=== PATIENT | male | born 1965 | race Hispanic/Latino ===

== ENCOUNTER 2019-05-04 10:02 | Inpatient (IN) | payer OTHER ==
[2019-05-04] MEDS ORDERED: LIDOCAINE VISCOUS 2% SOLN 15 ML UDC ONE (10:49)
[2019-05-04] MEDS ORDERED: NACL 0.9% IRR SOLN 2,000 ML IRR ONE ×3 (10:51→15:29)
[2019-05-04 11:35] LABS: Urine Culture Reflex Order NOT NEEDED; Urine RBC TNTC /HPF (NONE SEEN)
[2019-05-04 11:36] LABS: Urine Bacteria <20 /HPF (NONE SEEN)
[2019-05-04 11:51] LABS: Protime INR 1.01
[2019-05-04 12:02] LABS: Absolute Lymphocytes (CBC) 1.4 K/uL (0.7-4.9); Basophils % 0.5 % (0-1.3); Hematocrit 46.1 % (39.6-49.0); Lymphocytes % 18.4 % (15.3-44.8); MPV 10.5 fL (7.6-11.3); RBC Red Blood Cell Count 4.96 M/uL (4.33-5.43)
[2019-05-04 12:03] LABS: ALT/SGPT 52 U/L (12-78); AST/SGOT 28 U/L (15-37); Albumin 3.9 g/dL (3.4-5.0); Alkaline Phosphatase 78 U/L (45-117); BUN Blood Urea Nitrogen 8 mg/dL (7-18); Bicarbonate 27 mmol/L (21-32); Bilirubin Direct 0.2 mg/dL (0-0.2); Bilirubin Total 0.6 mg/dL (0.2-1.0); Glucose Level 104 mg/dL (74-106); Lipase 99 U/L (73-393); Potassium 3.5 mmol/L (3.5-5.1); Protein, Total 7.8 g/dL (6.4-8.2); Sodium Level 139 mmol/L (136-145)
--- NOTE | 2019-05-04 12:51 | RAD REPORT ---
EXAM DESCRIPTION: US - Renal Ultrasound-Complete - 05/04/2019 12:12 pm CLINICAL HISTORY: . Hematuria COMPARISON: None. FINDINGS: The right kidney measures 11 cm with a normal echotexture. The left kidney measures 11 cm with a normal echotexture. Hydronephrosis is not seen. A Goldberg catheter is present within a decompressed bladder limiting evaluation. Echos within the bladd er may indicate blood IMPRESSION: Unremarkable renal ultrasound. A Goldberg catheter is present within a decompressed bladder limiting evaluation. Echos within the bladd er may indicate blood
[2019-05-04] MEDS ORDERED: CEFTRIAXONE/SWI 1gm 1 GM/10 ML SYR ONE (13:11)
--- NOTE | 2019-05-04 14:08 | EDPHYS ---
Physician Documentation [facility] Name: Main Sotne Age: 53 yrs Sex: Male : 1965 Arrival Date: 05/04/2019 Time: 10:04 Bed 20 Private MD: Todd Anderson, A ED Physician Rene Yanez HPI: 05/04 11:00 This 53 yrs old Male presents to ER via Ambulatory with complaints of Urinary cp Retention. 11:00 The patient presents with urinary symptoms, unable to void, hematuria. Onset: The cp symptoms/episode began/occurred yesterday. Associated signs and symptoms: Pertinent positives: abdominal pain, hematuria, Pertinent negatives: constipation, diarrhea, dysuria, fever, vomiting. Severity of symptoms: in the emergency department the symptoms are unchanged, despite home interventions. 11:00 Patient reports having TURP procedure by DR Anderson about 4 weeks ago. cp Historical: - Allergies: 10:25 No Known Allergies; ss - PMHx: 10:25 None; ss - PSHx: 10:25 prostate lift; vein surgery in leg; ss - Immunization history:: Adult Immunizations up to date. - Social history:: Smoking status: Patient/guardian denies using tobacco. - Ebola Screening: : Patient denies exposure to infectious person Patient denies travel to an Ebola-affected area in the 21 days before illness onset. ROS: 11:05 Constitutional: Negative for body aches, chills, fever, poor PO intake. cp 11:05 Eyes: Negative for injury, pain, redness, and discharge. cp 11:05 ENT: Negative for drainage from ear(s), ear pain, sore throat, difficulty swallowing, difficulty handling secretions. 11:05 Cardiovascular: Negative for chest pain, edema, palpitations. 11:05 Respiratory: Negative for cough, shortness of breath, wheezing. 11:05 Abdomen/GI: Positive for abdominal pain, Negative for vomiting, diarrhea, constipation, anorexia, black/tarry stool, rectal bleeding. 11:05 Back: Negative for pain at rest, pain with movement. 11:05 : Positive for hematuria, difficulty urinating, Negative for flank pain, bladder incontinence, testicular pain 11:05 Skin: Negative for rash. 11:05 Neuro: Negative for altered mental status, headache, weakness. 11:05 All other systems are negative. Exam: 11:15 Constitutional: The patient appears in no acute distress, alert, awake, cp non-diaphoretic, non-toxic, well developed, well nourished, uncomfortable. 11:15 Head/Face: Normocephalic, atraumatic. cp 11:15 Eyes: Periorbital structures: appear normal, Conjunctiva: normal, no exudate, no injection, Sclera: no appreciated abnormality, Lids and lashes: appear normal, bilaterally. 11:15 ENT: External ear(s): are unremarkable, Nose: is normal, Mouth: is normal, Posterior pharynx: is normal, airway is patent, no erythema, no exudate. 11:15 Chest/axilla: Inspection: normal, Palpation: is normal, no crepitus, no tenderness. 11:15 Cardiovascular: Rate: normal, Rhythm: regular, Edema: is not appreciated, JVD: is not appreciated. 11:15 Respiratory: the patient does not display signs of respiratory distress, Respirations: normal, no use of accessory muscles, no retractions, labored breathing, is not present, Breath sounds: are clear throughout, no decreased breath sounds, no stridor, no wheezing. 11:15 Abdomen/GI: Inspection: distension, that is mild, in the suprapubic area, Bowel sounds: active, all quadrants, Palpation: soft, in all quadrants, moderate abdominal tenderness, in the suprapubic area, rebound tenderness, is not appreciated, voluntary guarding, is elicited in the suprapubic area, involuntary guarding, is not appreciated. 11:15 Back: CVA tenderness, is absent. 11:15 Skin: no rash present. 11:15 Neuro: Orientation: to person, place \T\ time. Mentation: is normal, Motor: moves all fours, strength is normal. Vital Signs: 10:22 BP 124 / 94; Pulse 82; Resp 16; Temp 99.1(TE); Pulse Ox 97% on R/A; Weight 81.65 kg; ss Height 5 ft. 5 in. (165.10 cm); Pain 7/10; 11:44 BP 119 / 93; Pulse 78; Resp 16; Temp 99.4(O); Pulse Ox 98% on R/A; mh5 13:07 BP 127 / 90; Pulse 69; Resp 18; Pulse Ox 99% on R/A; Pain 0/10; em 13:59 BP 121 / 87; Pulse 67; Resp 18; Temp 98.2(O); Pulse Ox 97% on R/A; mh5 14:48 BP 120 / 91; Pulse 70; Resp 17; Temp 98.8(O); Pulse Ox 99% on R/A; mh5 10:22 Body Mass Index 29.95 (81.65 kg, 165.10 cm) ss MDM: 10:27 Patient medically screened. cp 12:00 Differential diagnosis: UTI, urinary retention, prostatitis, urethritis, cystitis. cp 13:20 Data reviewed: vital signs, nurses notes, lab test result(s), radiologic studies, cp ultrasound. 13:20 Counseling: I had a detailed discussion with the patient and/or guardian regarding: the cp historical points, exam findings, and any diagnostic results supporting the discharge/admit diagnosis, lab results, radiology results. Response to treatment: the patient's symptoms have mildly improved after treatment. 13:25 Physician consultation: Todd Anderson MD was called at 13:25, left message on voicemail. 14:20 Physician consultation: Todd Anderson MD was contacted at 14:00, regarding consult, cp patient's condition, would like admission per Dr. Viviana To MD. 05/04 11:11 Order name: Basic Metabolic Panel; Complete Time: 12:12 cp 05/04 11:11 Order name: CBC with Diff; Complete Time: 12:26 cp 05/04 12:57 Interpretation: Normal except: CAROLINE% 74.2. cp 05/04 11:11 Order name: Creatinine for Radiology; Complete Time: 12:12 cp 05/04 11:11 Order name: Hepatic Function; Complete Time: 12:12 cp 05/04 11:11 Order name: Lipase; Complete Time: 12:12 cp 05/04 11:11 Order name: PT-INR; Complete Time: 12:12 cp 05/04 10:54 Order name: Bladder Scanner: pre and post void; Complete Time: 10:54 cp 05/04 11:11 Order name: IV Saline Lock; Complete Time: 11:49 cp 05/04 11:11 Order name: Labs collected and sent; Complete Time: 11:49 cp 05/04 11:11 Order name: Ptt, Activated; Complete Time: 12:12 cp 05/04 11:11 Order name: US Rp Exam Complete; Complete Time: 12:56 cp 05/04 11:11 Order name: UA MICROSCOPIC; Complete Time: 12:12 cp 05/04 12:12 Interpretation: Reviewed. cp 05/04 11:11 Order name: Urine Culture cp 05/04 11:11 Order name: Bladder Irrigation: until clear; Complete Time: 11:49 cp Administered Medications: 13:16 Drug: Rocephin 1 grams Route: IV; Rate: bolus; Site: right antecubital; ss 14:09 Follow up: Response: No adverse reaction; IV Status: Completed infusion; IV Intake: 10mlem Disposition: 05/04/19 14:07 Hospitalization ordered by Viviana To for Observation. Preliminary diagnosis are Hematuria, Retention of urine. - Bed requested for Telemetry/MedSurg (observation). - Status is Observation. em - Condition is Stable. - Problem is new. - Symptoms have improved. UTI on Admission? No Addendum: 05/08/2019 06:04 Co-signature as Attending Physician, Rene Yanez MD. g s Signatures: Dispatcher [employer] EDMS Sasha Marcelo bd Lamberto, Candelario, BROACH TROUBLE SHOOTER BROACH TROUBLE SHOOTER em Kaylyn Neri RN RN ss Nato Alejandre PA PA cp Rene Yanez MD MD Corrections: (The following items were deleted from the chart) 05/04 15:35 14:07 Hospitalization Ordered by Viviana To MD for Observation. Preliminary diagnosis bd is Hematuria; Retention of urine. Bed requested for Telemetry/MedSurg (observation). Status is Observation. Condition is Stable. Problem is new. Symptoms have improved. UTI on Admission? No. cp 16:20 15:35 05/04/2019 14:07 Hospitalization Ordered by Viviana To MD for Observation. em Preliminary diagnosis is Hematuria; Retention of urine. Bed requested for Telemetry/MedSurg (observation). Status is Observation. Condition is Stable. Problem is new. Symptoms have improved. UTI on Admission? No. bd 22:54 05/03 11:15 Constitutional: The patient appears in no acute distress, alert, awake, cp non-diaphoretic, non-toxic, well developed, well nourished, cp 05/04 22:54 05/03 11:15 Head/Face: Normocephalic, atraumatic. cp cp 05/04 22:54 05/03 11:15 Eyes: Periorbital structures: appear normal, Conjunctiva: normal, no cp exudate, no injection, Sclera: no appreciated abnormality, Lids and lashes: appear normal, bilaterally, cp 05/04 22:54 05/03 11:15 ENT: External ear(s): are unremarkable, Nose: is normal, Mouth: Lips: cp moist, Oral mucosa: pink and intact, moist, Posterior pharynx: is normal, airway is patent, no erythema, no exudate, cp 05/04 22:54 05/03 11:15 Chest/axilla: Inspection: normal, Palpation: is normal, no crepitus, no cp tenderness, cp 05/04 22:54 05/03 11:15 Cardiovascular: Rate: normal, Rhythm: regular, Edema: is not appreciated, cp JVD: is not appreciated, cp 05/04 22:05/03 11:15 Respiratory: the patient does not display signs of respiratory distress, cp Respirations: normal, no use of accessory muscles, no retractions, no splinting, no tachypnea, labored breathing, is not present, Breath sounds: are clear throughout, no decreased breath sounds, no stridor, no wheezing, cp 05/04 22:54 05/03 11:15 Abdomen/GI: Inspection: distension, that is mild, in the suprapubic area, cp Bowel sounds: active, all quadrants, Palpation: soft, in all quadrants, mild abdominal tenderness, in the suprapubic area, rebound tenderness, is not appreciated, involuntary guarding, is not appreciated, cp 05/04 22:54 05/03 11:15 Back: CVA tenderness, is absent, cp cp 05/04 22:54 05/03 11:15 Skin: no rash present. cp cp 05/04 22:54 05/03 11:15 Neuro: Orientation: to person, place \T\ time. Mentation: Motor: moves all cp fours, strength is normal, cp
--- NOTE | 2019-05-04 14:08 | ER ---
Nurse's Notes [facility] Name: Main Stone Age: 53 yrs Sex: Male : 1965 Arrival Date: 05/04/2019 Time: 10:04 Bed 20 Private MD: Todd Anderson A Diagnosis: Hematuria;Retention of urine Presentation: 05/04 10:23 Presenting complaint: Patient states: Had prostate surgery 4 weeks ago, is now passing ss clots, and feels the sensation to have to void, but is unable to empty bladder. Transition of care: patient was not received from another setting of care. Onset of symptoms was May 04, 2019. Risk Assessment: Do you want to hurt yourself or someone else? Patient reports no desire to harm self or others. Initial Sepsis Screen: Does the patient meet any 2 criteria? No. Patient's initial sepsis screen is negative. Does the patient have a suspected source of infection? Yes: Dysuria/Frequency/Urgency/UTI. Care prior to arrival: None. 10:23 Method Of Arrival: Ambulatory ss 10:23 Acuity: GRETTA 3 ss Historical: - Allergies: 10:25 No Known Allergies; ss - PMHx: 10:25 None; ss - PSHx: 10:25 prostate lift; vein surgery in leg; ss - Immunization history:: Adult Immunizations up to date. - Social history:: Smoking status: Patient/guardian denies using tobacco. - Ebola Screening: : Patient denies exposure to infectious person Patient denies travel to an Ebola-affected area in the 21 days before illness onset. Screenin:37 Abuse screen: Denies threats or abuse. Nutritional screening: No deficits noted. em Tuberculosis screening: No symptoms or risk factors identified. Fall Risk None identified. Assessment: 10:30 General: Appears in no apparent distress. uncomfortable, Behavior is calm, cooperative, em Denies fever. Pain: Complains of pain in suprapubic area Pain currently is 8 out of 10 on a pain scale. Neuro: Level of Consciousness is awake, alert, obeys commands, Oriented to person, place, time, situation, Appropriate for age. Cardiovascular: Capillary refill < 3 seconds Patient's skin is warm and dry. Respiratory: Airway is patent Respiratory effort is even, unlabored, Respiratory pattern is regular, symmetrical. GI: Abdomen is flat, Patient currently denies abdominal pain, nausea, vomiting. : Urine is kris blood, Genitalia appear normal Last void was May 03, 2019. at 22:00. Reports inability to void. Derm: Skin is intact, is healthy with good turgor, Skin is pink, warm \T\ dry. Musculoskeletal: Capillary refill < 3 seconds, Range of motion: intact in all extremities. 10:35 General: The previous assessment is accurate. Call light remains within reach. ss 11:30 Reassessment: Patient appears in no apparent distress at this time. Patient and/or em family updated on plan of care and expected duration. Pain level reassessed. Patient is alert, oriented x 3, equal unlabored respirations, skin warm/dry/pink. Patient denies pain at this time. Patient states feeling better. Patient states symptoms have improved. 12:30 Reassessment: at bedside irrigating bladder. em 13:35 Reassessment: Patient appears in no apparent distress at this time. Patient and/or em family updated on plan of care and expected duration. Pain level reassessed. Patient is alert, oriented x 3, equal unlabored respirations, skin warm/dry/pink. 14:30 Reassessment: Patient appears in no apparent distress at this time. Patient and/or em family updated on plan of care and expected duration. Pain level reassessed. Patient is alert, oriented x 3, equal unlabored respirations, skin warm/dry/pink. pending room assignment. 15:45 Reassessment: Patient appears in no apparent distress at this time. Patient and/or em family updated on plan of care and expected duration. Pain level reassessed. Patient is alert, oriented x 3, equal unlabored respirations, skin warm/dry/pink. Vital Signs: 10:22 BP 124 / 94; Pulse 82; Resp 16; Temp 99.1(TE); Pulse Ox 97% on R/A; Weight 81.65 kg; ss Height 5 ft. 5 in. (165.10 cm); Pain 7/10; 11:44 BP 119 / 93; Pulse 78; Resp 16; Temp 99.4(O); Pulse Ox 98% on R/A; mh5 13:07 BP 127 / 90; Pulse 69; Resp 18; Pulse Ox 99% on R/A; Pain 0/10; em 13:59 BP 121 / 87; Pulse 67; Resp 18; Temp 98.2(O); Pulse Ox 97% on R/A; mh5 14:48 BP 120 / 91; Pulse 70; Resp 17; Temp 98.8(O); Pulse Ox 99% on R/A; mh5 10:22 Body Mass Index 29.95 (81.65 kg, 165.10 cm) ED Course: 10:04 Patient arrived in ED. as 10:05 Todd Anderson MD is Private Physician. as 10:17 Nato Alejandre PA is PHCP. cp 10:17 Rene Yanez MD is Attending Physician. cp 10:22 Arm band placed on right wrist. ss 10:23 Candelario Orantes LVN is Primary Nurse. em 10:24 Triage completed. ss 10:37 Patient has correct armband on for positive identification. Placed in gown. Bed in low em position. Call light in reach. Adult w/ patient. Pulse ox on. NIBP on. 10:43 Bladder scan completed. 455 mL post void. em 11:15 3-way catheter inserted, using sterile technique, 18 Fr. Specimen obtained. em 11:30 Initial lab(s) drawn, by me, sent to lab. Inserted saline lock: 20 gauge in right em antecubital area, using aseptic technique. Blood collected. 11:41 Urine Culture Sent. 5 12:10 Ultrasound completed. Patient tolerated well. sg3 12:13 US Rp Exam Complete In Process Unspecified. EDMS 12:35 Bladder irrigated via Goldberg with 2 liters normal saline returned kris blood Patient em tolerated well. 14:06 Viviana To MD is Hospitalizing Provider. cp 15:36 Bladder irrigated via Goldberg with 2 liters normal saline returned kris blood Patient em tolerated well. 16:19 No provider procedures requiring assistance completed. Patient admitted, IV remains in em place. Administered Medications: 13:16 Drug: Rocephin 1 grams Route: IV; Rate: bolus; Site: right antecubital; 14:09 Follow up: Response: No adverse reaction; IV Status: Completed infusion; IV Intake: 10mlem Intake: 14:09 IV: 10ml; Total: 10ml. em Outcome: 14:07 Decision to Hospitalize by Provider. cp 16:19 Admitted to Med/surg accompanied by tech, via stretcher, room 429, with chart, Report em called to CHACHO Hernandez 16:19 Condition: good 16:19 Instructed on the need for admit, Demonstrated understanding of instructions. 16:20 Patient left the ED. em Signatures: Dispatcher [employer] Candelario Null, POULTRY DEBEAKER POULTRY DEBEAKER Laura Ramos Shelby, RN RN Nato Manuel PA PA cp Martinez, Maria [facility] Fernanda James 3
[2019-05-04 16:28] VITALS: BMI 27.2
[2019-05-04] MEDS ORDERED: ACETAMINOPHEN 500 MG TAB PO PRN (16:50)
[2019-05-04] MEDS ORDERED: ONDANSETRON 4 MG/2 ML VIAL IV PRN (16:50)
[2019-05-04] MEDS ORDERED: POTASSIUM CL SA 10 MEQ TAB PO ONE (16:55)
[2019-05-04] MEDS: SODIUM CHL 0.9% IRR SOLN 2000 ML IRR PRN ×3 (17:16→21:27)
[2019-05-04] MEDS: NA CHLORIDE 0.9% 1,000 ML IV SCH (17:17)
[2019-05-04] MEDS ORDERED: CEFTRIAXONE/SWI 1gm 1 GM/10 ML SYR IVP SCH (18:00)
--- NOTE | 2019-05-05 01:11 | HP ---
Date of Admission: 05/04/2019 Consultants: Dr. Anderson with Urology. Primary Care Physician: None. Chief Complaint: Gross hematuria. History Of Present Illness: Patient is a 53-year-old male with past medical history of GERD, who had recent TURP procedure as an outpatient on 04/08/[address] Anderson, started having worsening hematuri a, which was gross in nature and also had urinary retention. Patient was unable to urinate, had abdo madhavi distention, pain, therefore came into the ER for further evaluation. His symptoms are constant , moderate, progressively worsening. He does have some dysuria. Denies any fevers or chills. In th e ER, his vital signs were stable, he was afebrile, his workup revealed hemoglobin of 15.7 and 46.1. Renal ultrasound was done, which was unremarkable. Goldberg catheter showed decompressed bladder limit ing evaluation. Echoes within the bladder may indicate blood. Patient was started on bladder irriga tion. Dr. Anderson was consulted by the ER, who recommended further observation and treatment. When se en in the ER he was awake, alert, oriented x3, in some mild distress. Past Medical History: Gastroesophageal reflux disease, prostatic hyperplasia status post TURP on . Also has had a bladder lift and vein surgery on his lower extremity. Allergies: NO KNOWN DRUG ALLERGIES. Medications: Takes PPI and Centrum. Patient recently finished course of antibiotics post procedure. Social History: Patient denies any tobacco use, alcohol use, or illicit drug use. Family History: Mom had diabetes. Review of Systems: Ten-point system reviewed, negative except as per HPI. Physical Examination: Vital Signs: Blood pressure 124/94, respirations are 16, heart rate 82, blood pressure 124/94, O2 97 % on room air, temperature 99.1. General: Awake, alert, oriented x3. Some mild distress, ill-appearing male. HEENT: Normocephalic, atraumatic. PERRL, EOMI. Dry mucous membranes. Oropharynx is clear. Conjun ctivae are anicteric. Neck: Supple. No JVD. Trachea midline. CV: S1, S2. Regular rate and rhythm. Peripheral pulses present. Respiratory: Moving air well bilaterally. No wheezing or stridor. No use of accessory muscles. Gastrointestinal: Abdomen is soft. Tenderness to palpation in the suprapubic region. Mild distenti on. Positive bowel sounds. Extremities: No clubbing, cyanosis, or edema. No calf tenderness. Neuro: Cranial nerves 2 through 12 intact grossly. No focal neurological deficits. Speech is faizan l. Psych: Mood is okay. Affect is full. Insight and judgment are good. Skin: No rashes. Normal skin turgor. Laboratory Data: WBC 7.6, H and H 15.7 and 46.1, platelets 237, neutrophils 74%. INR 1.01. Sodium 139, potassium 3.5, chloride 107, CO2 27, BUN 8, creatinine 0.87, glucose 104, calcium 8.6. UA shows too numerous to count rbc's, 5-10 wbc's. Renal ultrasound shows unremarkable renal ultrasound. Fol ey catheter is present within a decompressed bladder limiting evaluation. Echoes within the bladder may indicate blood. Assessment: 53-year-old male with; 1.Gross hematuria likely related to recent procedure. We will continue with bladder irrigation alex g with manual irrigation every 2 hours as needed for clots. Dr. Anderson with Urology has been consulte d. We will continue to monitor H and H, currently stable at 15. 2.Acute cystitis with hematuria. We will start on Rocephin. We will follow up on urine culture. 3.Gastroesophageal reflux disease without esophagitis. We will continue home medication. 4.Deep vein thrombosis prophylaxis with SCDs. No chemical anticoagulation due to bleed. 5.Hypokalemia. We will replace and monitor. Plan: Admit patient to Med-Surg, place as observation. Keep n.p.o. after midnight for possible surg ical intervention in a.m. /ESEQUIEL Voice ID: [id number]
[2019-05-05] MEDS: NA CHLORIDE 0.9% 1,000 ML IV SCH ×2 (03:22→22:50)
[2019-05-05] MEDS: SODIUM CHL 0.9% IRR SOLN 2000 ML IRR PRN ×2 (03:23→06:46)
[2019-05-05 04:17] LABS: Absolute Lymphocytes (CBC) 1.8 K/uL (0.7-4.9); Basophils % 0.3 % (0-1.3); Lymphocytes % 23.8 % (15.3-44.8); MPV 10.3 fL (7.6-11.3); RBC Red Blood Cell Count 4.45 M/uL (4.33-5.43)
[2019-05-05 04:37] LABS: Albumin 3.3 g/dL (3.4-5.0); Bilirubin Total 0.4 mg/dL (0.2-1.0); Magnesium 2.1 mg/dL (1.8-2.4); Phosphorus 2.2 mg/dL (2.5-4.9); Potassium 3.5 mmol/L (3.5-5.1); Protein, Total 6.8 g/dL (6.4-8.2)
[2019-05-05] MEDS ORDERED: POTASSIUM CL SA 10 MEQ TAB PO ONE (06:24)
[2019-05-05] MEDS: PANTOPRAZOLE 40MG TABLET PO SCH (07:30)
[2019-05-05] MEDS: CEFTRIAXONE/SWI 1gm 1 GM/10 ML SYR IVP SCH (08:51)
--- NOTE | 2019-05-05 17:08 | CON ---
History Of Present Illness: This is a pleasant 53-year-old gentleman who had a TURP procedure done o n April 08, 2019. He was doing well postoperatively. No issues. Going back to work, had been d riving a truck, and going over bumpy areas, which may have exacerbated some bleeding. He had ultraso und. There were some clots in the bladder. Goldberg catheter was in good position. His urine is clear now. We will go ahead and feed him and nurse says some clots has been coming out, so we can observe him overnight and then hopefully he can go home in the morning. Allergies: NO KNOWN DRUG ALLERGIES. Past Medical History: GERD, BPH status post TURP on 04/08/2019. Also had a UroLift surgery in the p ast, vein surgery in lower extremities. Medications: He takes PPI, Centrum, antibiotics. Social History: Denies alcohol use. No drug use. Family History: Mom had diabetes. Review of Systems: Ten-point review of systems otherwise negative. Physical Examination: Vital Signs: Stable. HEENT: Atraumatic, normocephalic. Chest: Clear. HEART: S1, S2. Abdomen: Soft, nontender. : Goldberg is almost clear. On CBI. Laboratory Data: CBC normal. White count 7.8, H and H is 14 and 41, platelet count 213. Coags norm al. Chemistry pretty normal except for chloride 109, GFR is 87, glucose 108, calcium 8.0, phosphorus 2.2, creatinine 0.9. UA shows too numerous to count rbc's, 5-10 wbc's, bacteria less than 20. Cult ure grows less than 10,000 CFU. 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 He is now doing well with the catheter in leonel t can observe for 1 more night. I will leave the catheter in for at least a week, send the patient h ome with catheter for comfort care to take it easy for another month or so. MEME/ESEQUIEL Voice ID: [id number] Report ID: [id number]
--- NOTE | 2019-05-05 17:35 | PN ---
Date of Progress Note: 05/05/2019 Subjective: Patient seen and examined. Chart reviewed and case discussed with RN. Patient still soni s some gross hematuria. Bladder irrigation is still continuing. Medications: List reviewed. Physical Examination: Vital Signs: Temperature 97.8, heart rate 62, blood pressure 113/71, respirations 15, O2 98% on room air. General: Awake, alert, oriented x3, in some mild distress. CV: S1, S2. Regular rate and rhythm. Respiratory: Moving air well bilaterally. No wheezing or stridor. No use of accessory muscles. Gastrointestinal: Abdomen is soft, nontender, nondistended. Positive bowel sounds. Extremities: No clubbing, cyanosis, or edema. Neurologic: Nonfocal. Laboratory Data: Sodium 140, potassium 3.5, chloride 109, CO2 of 26, BUN 9, creatinine 0.91, glucose 108, calcium 8, phosphorus 2.2, magnesium 2.1. WBC 7.8, H and H 14.4 and 41, platelets 213, neutrop hils 66%. Urine culture, no growth to date. Assessment: A 53-year-old male with; 1.Gross hematuria likely related to recent procedure transurethral resection of the prostate. Vic nue with bladder irrigation. Appreciate Dr. Anderson's input. 2.Acute cystitis with hematuria. Continue on Rocephin. Urine culture shows no growth to date. 3.Gastroesophageal reflux disease without esophagitis. We will continue PPI. 4.Hypokalemia. Replace and monitor. 5.Deep venous thrombosis prophylaxis with SCDs. No chemical anticoagulation due to hematuria. Plan: Discharge once cleared by Urology and hematuria resolves. SA/MODL Voice ID: [id number] Report ID: [id number]
[2019-05-06 05:53] LABS: Absolute Lymphocytes (CBC) 1.8 K/uL (0.7-4.9); Basophils % 0.3 % (0-1.3); Hematocrit 40.9 % (39.6-49.0); Lymphocytes % 27.2 % (15.3-44.8); MPV 10.4 fL (7.6-11.3); RBC Red Blood Cell Count 4.42 M/uL (4.33-5.43)
[2019-05-06 06:04] LABS: ALT/SGPT 37 U/L (12-78); AST/SGOT 20 U/L (15-37); Albumin 3.4 g/dL (3.4-5.0); Alkaline Phosphatase 69 U/L (45-117); BUN Blood Urea Nitrogen 7 mg/dL (7-18); Bicarbonate 25 mmol/L (21-32); Bilirubin Total 0.5 mg/dL (0.2-1.0); Glucose Level 105 mg/dL (74-106); Potassium 3.5 mmol/L (3.5-5.1); Sodium Level 140 mmol/L (136-145)
[2019-05-06] MEDS: PANTOPRAZOLE 40MG TABLET PO SCH (08:20)
[2019-05-06] MEDS: CEFTRIAXONE/SWI 1gm 1 GM/10 ML SYR IVP SCH (08:24)
[2019-05-06 08:38] VITALS: O2SAT 95
[2019-05-06] MEDS ORDERED: POTASSIUM CL SA 10 MEQ TAB PO ONE (09:00)
[2019-05-06] MEDS: NA CHLORIDE 0.9% 1,000 ML IV SCH ×2 (09:06)
[2019-05-06] MEDS: SODIUM CHL 0.9% IRR SOLN 2000 ML IRR PRN (09:07)
--- NOTE | 2019-05-06 10:43 | P.PN ---
Subjective Date of Service: 05/06/19 Primary Care Provider: Urology-Dr. Anderson Chief Complaint: Hematuria Subjective: Improving, Doing well Physical Examination - Vital Signs Temperature: 97.6 F Blood Pressure: 123/66 Pulse: 100 Respirations: 16 Pulse Ox (%): 98 - Physical Exam General: Alert, In no apparent distress, Oriented x3, Cooperative HEENT: Atraumatic Neck: Supple Respiratory: Clear to auscultation bilaterally, Normal air movement Cardiovascular: Normal pulses, Regular rate/rhythm Gastrointestinal: Normal bowel sounds, Soft and benign, Non-distended Musculoskeletal: No erythema, No tenderness, No warmth Integumentary: No erythema, No warmth, No cyanosis Neurological: Normal speech, Normal strength at 5/5 x4 extr, Normal tone, Normal affect Other Physical/Emotional Findings: Patient continues with irrigation system. Urine appears clearer - Studies Microbiology Data (last 24 hrs): 05/04/19 11:25 Clean Catch Urine [place] Count - Final 05/04/19 11:25 Clean Catch Urine - Final No growth. Medications List Reviewed: Yes Assessment & Plan Discharge Plan: Home Plan to discharge in: 24 Hours Physician Review Additional Text: Impression: Gross hematuria and urinary retention with recent TURP GERD Plan: Gross hematuria and urinary retention with recent TURP: Patient continues with irrigation and urinary system. Urine appears clearer. Less to no blood clots noted. Hemoglobin remains within normal range. Electrolytes stable. Urology to reassess today. Possible discharge later today or tomorrow. Await urology reassessment and evaluation. Patient will likely require Goldberg catheter for at least 1 more week. GERD: Continue with medication. Time Spent Managing Pts Care (In Minutes): 55
[2019-05-06] MEDS ORDERED: NACHLORIDE 0.45% 1,000 ML IV SCH (11:00)
--- NOTE | 2019-05-06 16:31 | P.DS ---
Admission Date: 05/05/19 Discharge Date: 05/06/19 Primary Care Provider: Urology-Dr. Anderson Disposition: ROUTINE DISCHARGE Discharge Condition: GOOD Reason for Admission: Hematuria Consultations: Urology-Dr. Anderson Procedures: Renal US: FINDINGS: The right kidney measures 11 cm with a normal echotexture. The left kidney measures 11 cm with a normal echotexture. Hydronephrosis is not seen. A Goldberg catheter is present within a decompressed bladder limiting evaluation. Echos within the bladder may indicate blood IMPRESSION: Unremarkable renal ultrasound. A Goldberg catheter is present within a decompressed bladder limiting evaluation. Echos within the bladder may indicate blood Medical problem list: Gross hematuria and urinary retention with recent TURP GERD Brief History of Present Illness: 53-year-old male with history of GERD and recent TURP done as an outpatient in March of 2019 by urology. Patient presented with hematuria and urinary retention. Patient evaluated the emergency room. Goldberg catheter was placed. Blood clots noted. Bladder irrigation initiated. Patient was admitted for further evaluation. Hospital Course: Patient presented with gross hematuria, urinary retention likely related to recent TURP done in March by urology. Goldberg catheter was placed. Bladder was irrigated. Patient was monitored closely. At discharge no clots were present. Urine appeared clear. Urology discontinued Goldberg catheter. No further intervention was required. Patient will be discharged home. Patient will follow up with urology within 1 week to follow up this hospitalization. Patient to monitor for hematuria and urinary retention. Patient with history of GERD. Patient will continue with his current medication. Vital Signs/Physical Exam: Temp Pulse Resp BP Pulse Ox 97.7 F 64 16 130/80 97 05/06/19 12:00 05/06/19 12:00 05/06/19 12:00 05/06/19 12:00 05/06/19 12:00 General: Alert, In no apparent distress, Oriented x3, Cooperative HEENT: Atraumatic Neck: Supple Respiratory: Clear to auscultation bilaterally, Normal air movement Cardiovascular: Normal pulses, Regular rate/rhythm Gastrointestinal: Normal bowel sounds, Soft and benign, Non-distended, No tenderness, No masses, No rebound, No guarding Musculoskeletal: No erythema, No tenderness, No warmth Integumentary: No tenderness/swelling, No erythema, No warmth, No cyanosis Neurological: Normal speech, Normal strength at 5/5 x4 extr, Normal tone Other Physical/Emotional Findings: Patient continues with irrigation system. Urine appears clearer Laboratory Data at Discharge: WBC 6.6 K/uL (4.3-10.9) D 05/06/19 05:26 Hgb 14.4 g/dL (13.6-17.9) 05/06/19 05:26 Hct 40.9 % (39.6-49.0) 05/06/19 05:26 Plt Count 221 K/uL (152-406) 05/06/19 05:26 PT 11.9 SECONDS (9.5-12.5) 05/04/19 11:28 INR 1.01 05/04/19 11:28 APTT 32.4 SECONDS (24.3-36.9) 05/04/19 11:28 Sodium 140 mmol/L (136-145) 05/06/19 05:26 Potassium 3.5 mmol/L (3.5-5.1) 05/06/19 05:26 BUN 7 mg/dL (7-18) 05/06/19 05:26 Creatinine 0.81 mg/dL (0.55-1.3) 05/06/19 05:26 Glucose 105 mg/dL (74-106) 05/06/19 05:26 Phosphorus 2.2 mg/dL (2.5-4.9) L 05/05/19 03:39 Magnesium 2.1 mg/dL (1.8-2.4) 05/05/19 03:39 Total Bilirubin 0.5 mg/dL (0.2-1.0) 05/06/19 05:26 AST 20 U/L (15-37) 05/06/19 05:26 ALT 37 U/L (12-78) 05/06/19 05:26 Alkaline Phosphatase 69 U/L (45-117) 05/06/19 05:26 Lipase 99 U/L (73-393) 05/04/19 11:28 Home Medications: Lansoprazole [Prevacid] 1 tab PO DAILY 05/04/19 Patient Discharge Instructions: Continue with home meds. Follow up with Urology. Make sure Goldberg is discontinued Diet: AHA Activity: Ad shanthi Time spent managing pt's care (in minutes): 55
[2019-05-06 16:53] VITALS: BP 122/92; TEMP 97.2
--- NOTE | 2019-05-06 19:36 | PN ---
Patient's urine is clear today. We will go ahead and discontinue catheter, discharge the patient kaleb e. He has an appointment to see me in about 3 days and we will see how he is doing. MEME/ESEQUIEL Voice ID: [id number] Report ID: [id number]
== END 2019-05-06 17:38 | disposition home or self-care (01) | DRG 696 ==
LOC: ER 10:02 → ERHOLD 15:09 → UNDOADMIN 15:09 → 4TH 16:12 → OBSVTOIN 05-05 14:40
PROVIDERS: ADMIT Family Medicine; ATTEND Family Medicine
DX: R31.0 Gross hematuria (principal); R33.9 Retention of urine, unspecified; K21.9 Gastro-esophageal reflux disease without esophagitis; E87.6 Hypokalemia; Z98.890 Other specified postprocedural states
CPT/HCPCS: 36415; 51700; 76770; 80048; 80053; 80076; 81015; 83690; 83735; 84100; 85025; 85610; 85730; 87086; 87088; 94760; 96365; 99285; G0378; J0696; J7030